=== PATIENT | female | born 1955 | race Caucasian/White ===

== ENCOUNTER 2017-06-16 18:07 | Emergency (ER) | payer MEDICAID ==
[~2017-06-16] VITALS: Ht 162.6 cm; Wt 68.0 kg
[2017-06-16 18:20] VITALS: BP 126/81
[2017-06-16] MEDS ORDERED: LEVO100T9 PO (18:22)
== END 2017-06-16 19:10 | disposition home or self-care (01) ==
LOC: ER 18:09
DX: H92.01 Otalgia, right ear (principal); R20.2 Paresthesia of skin; M54.6 Pain in thoracic spine; E03.9 Hypothyroidism, unspecified; G50.0 Trigeminal neuralgia; J45.909 Unspecified asthma, uncomplicated
CPT/HCPCS: A4606; Z7610

== ENCOUNTER 2017-08-04 19:17 | Emergency (ER) | payer MEDICAID ==
[~2017-08-04] VITALS: Ht 160 cm; Wt 70.3 kg
[~2017-08-04 19:17] MED LIST: LEVO100T9 PO
[2017-08-04 19:26] VITALS: BP 159/95
== END 2017-08-04 20:19 | disposition home or self-care (01) ==
LOC: ER 19:19
DX: R20.2 Paresthesia of skin (principal); R20.0 Anesthesia of skin; J45.909 Unspecified asthma, uncomplicated; E03.9 Hypothyroidism, unspecified
CPT/HCPCS: 99283; A4606; Z7610

== ENCOUNTER 2017-10-12 17:47 | Emergency (ER) | payer MEDICAID, OTHER ==
[~2017-10-12] VITALS: Ht 162.6 cm; Wt 71.2 kg
[2017-10-12 19:08] VITALS: BP 148/90
== END 2017-10-12 18:15 | disposition home or self-care (01) ==
LOC: ER 17:48
DX: M54.6 Pain in thoracic spine (principal); M62.830 Muscle spasm of back; E03.9 Hypothyroidism, unspecified; Z79.899 Other long term (current) drug therapy; X50.1XXA Overexertion from prolonged static or awkward postures, initial encounter; Y93.89 Activity, other specified; Y92.89 Other specified places as the place of occurrence of the external cause; Y99.8 Other external cause status
CPT/HCPCS: 99283; A4606; Z7610

== ENCOUNTER 2018-04-07 17:41 | Emergency (ER) | payer OTHER ==
[~2018-04-07] VITALS: Ht 134.6 cm; Wt 68.0 kg
[2018-04-07] MEDS ORDERED: CYCLOBENZAPRINE 10 MG TABLET ONE (18:15)
[2018-04-07] MEDS ORDERED: KETOROLAC TROMETHAMINE INJ 60 MG/2 ML VIAL IM ONE ×2 (18:15→18:30)
[2018-04-07] MEDS ORDERED: DEXAMETHASONE SOD PHOSPHATE 10 MG/ML VIAL ONE (18:15)
--- NOTE | 2018-04-07 18:28 | NUR ---
C/O OF UPPER BACK PAIN x 1 WEEK, WORST TODAY, 12/09. PT AAOX4, VSS. PT SEEN & EVAL'D BY KWABENA SPEARS. MEDICATED FOR PAIN PER PA'S ORDER, PT MAYA WELL. WILL CONT TO MONITOR. URINE COLLECTED & SENT TO LAB.
[2018-04-07] MEDS ORDERED: DEXAMETHASONE SOD PHOSPHATE 4 MG/ML VIAL IM ONE (18:30)
[2018-04-07] MEDS ORDERED: CYCLOBENZAPRINE 10 MG TABLET PO ONE (18:30)
[2018-04-07 18:43] LABS: APPEARANCE,URINE Clear (CLEAR); BILIRUBIN,URINE Negative (NEGATIVE); BLOOD, URINE Trace-intact Ery/uL (NEGATIVE); COLOR,URINE Yellow (YELLOW); KETONES,URINE Trace (NEGATIVE); LEUKOCYTE ESTERASE ,URINE Negative (NEGATIVE); NITRITE, URINE Negative (NEGATIVE); PH,URINE 5.5 (5.0-8.0); PROTEIN,URINE Negative (NEGATIVE); UGLUCOSE 100 MG/DL mg/dL (NEGATIVE); UROBILINOGEN,URINE 0.2 EU/dL (0.2)
[2018-04-07 18:58] LABS: RBC,URINE 2-3/HPF /HPF (0-2); WBC,URINE 0-2 /HPF (0-3)
[2018-04-07 18:59] LABS: BACTERIA,URINE Rare /HPF (None Seen); SQUAMOUS EPITHELIAL CELL,UR Few /HPF (None Seen); URINE AMORPHOUS URATE Few /HPF (None Seen)
--- NOTE | 2018-04-07 19:26 | NUR ---
Patient discharged to home in stable condition. Written and verbal after care instructions given. Patient verbalizes understanding of instruction.
[2018-04-07 19:28] VITALS: BP 138/78
== END 2018-04-07 19:28 | disposition home or self-care (01) ==
LOC: ER 17:42
DX: M54.6 Pain in thoracic spine (principal); E03.9 Hypothyroidism, unspecified
CPT/HCPCS: 81001; 96372 ×2; 99283; A4606; J1100; J1885; 81000-TC

== ENCOUNTER 2018-11-29 17:42 | Emergency (ER) | payer MEDICAID, OTHER ==
[~2018-11-29] VITALS: Ht 162.6 cm; Wt 65.3 kg
--- NOTE | 2018-11-29 17:52 | NUR ---
PT BIB SELF C/O UPPER BACK PAIN x 1 MONTH, DENIES ANY INJURY OR TRAUMA, PT IS AAOX4, NOT IN RESPIRATORY DISTRESS, HOOKED TO MONITOR, KEPT RESTED AND COMFORTABLE, WILL CONTINUE TO MONITOR.
--- NOTE | 2018-11-29 18:09 | NUR ---
SEEN AND EXAMINED BY DESHAUN COHEN
--- NOTE | 2018-11-29 18:21 | NUR ---
PT IS WHEELED TO RADIOLOGY FOR XRAY.
[2018-11-29] MEDS ORDERED: KETOROLAC TROMETHAMINE INJ 30 MG/ML VIAL ONE (18:23)
[2018-11-29] MEDS ORDERED: DEXAMETHASONE SOD PHOSPHATE 10 MG/ML VIAL ONE (18:23)
[2018-11-29] MEDS ORDERED: CYCLOBENZAPRINE 10 MG TABLET ONE (18:24)
[2018-11-29] MEDS ORDERED: CYCLOBENZAPRINE 10 MG TABLET PO ONE (18:30)
[2018-11-29] MEDS ORDERED: DEXAMETHASONE SOD PHOSPHATE 4 MG/ML VIAL IM ONE (18:30)
[2018-11-29] MEDS ORDERED: KETOROLAC TROMETHAMINE INJ 60 MG/2 ML VIAL IM ONE (18:30)
[2018-11-29 19:11] VITALS: BP 130/72
--- NOTE | 2018-11-29 19:11 | NUR ---
Patient discharged to home in stable condition. Written and verbal after care instructions given. Patient verbalizes understanding of instruction.
== END 2018-11-29 19:11 | disposition home or self-care (01) ==
LOC: ER 17:46
DX: M54.6 Pain in thoracic spine (principal); E03.9 Hypothyroidism, unspecified
CPT/HCPCS: 71100; 96372 ×2; 99283; J1100; J1885

== ENCOUNTER 2020-08-08 04:27 | Emergency (ER) | payer MEDICAID ==
[~2020-08-08] VITALS: Ht 162.6 cm; Wt 68.0 kg
[2020-08-08 05:02] VITALS: BP 167/110
[2020-08-08] MEDS ORDERED: ONDANSETRON 4 MG TAB.RAPDIS ONE (06:18)
[2020-08-08] MEDS ORDERED: ONDANSETRON 4 MG TAB.RAPDIS SL ONE (06:30)
== END 2020-08-08 06:24 | disposition home or self-care (01) ==
LOC: ER 04:31
DX: B02.9 Zoster without complications (principal); E03.9 Hypothyroidism, unspecified; Z79.899 Other long term (current) drug therapy
CPT/HCPCS: 99283; Q0162

== ENCOUNTER 2022-10-10 15:24 | Emergency (ER) | payer OTHER ==
[~2022-10-10] VITALS: Ht 160 cm; Wt 59.0 kg
[2022-10-10] MEDS ORDERED: LIDOCAINE 1%-EPI 1:100,000 20 ML VIAL ONE (17:49)
[2022-10-10] MEDS ORDERED: LIDOCAINE 1%-EPI 1:100,000 20 ML VIAL TP ONE (18:00)
[2022-10-10 19:21] VITALS: BP 132/86; TEMP 98.3; O2SAT 98
== END 2022-10-10 19:21 | disposition home or self-care (01) ==
LOC: ER 15:34
DX: S01.112A Laceration without foreign body of left eyelid and periocular area, initial encounter (principal); R51.9 Headache, unspecified; E03.9 Hypothyroidism, unspecified; W01.0XXA Fall on same level from slipping, tripping and stumbling without subsequent striking against object, initial encounter; Y93.89 Activity, other specified; Y92.009 Unspecified place in unspecified non-institutional (private) residence as the place of occurrence of the external cause; Y99.8 Other external cause status
CPT/HCPCS: 99284; 70450; 12013; A6403; J3490

== ENCOUNTER 2024-08-12 13:04 | Emergency (ER) | payer OTHER, MEDICAID ==
[~2024-08-12] VITALS: Ht 157.5 cm; Wt 63.5 kg
[2024-08-12 13:32] VITALS: TEMP 98.5
[2024-08-12 14:42] LABS: BASOPHILS % (AUTO) 0.6 % (0.0-2.0); EOSINOPHILS # (AUTO) 0.3 K/uL (0.0-0.7); EOSINOPHILS % (AUTO) 3.2 % (0.0-6.0); HEMATOCRIT 40 % (33-45); HEMOGLOBIN 13.4 g/dL (11.5-14.8); LYMPHOCYTES % (AUTO) 25.1 % (20.0-44.0); MEAN CORPUSCULAR HEMOGLOBIN 30 PG (26.0-33.0); MEAN CORPUSCULAR HGB CONC 34 g/dl (31.0-36.0); MEAN CORPUSCULAR VOLUME 88 fL (82-100); MONOCYTES # (AUTO) 0.7 K/uL (0.1-1.30); MONOCYTES % (AUTO) 8.4 % (2.0-12.0); NEUTROPHILS # (AUTO) 5.1 K/uL (1.8-8.9); NEUTROPHILS % (AUTO) 62.7 % (43.0-81.0); PLATELET COUNT (AUTO) 397 K/uL (150-450); RED BLOOD CELL COUNT(AUTO) 4.54 MIL/uL (4.0-5.2); RED CELL DISTRIBUTION WIDTH 13.6 % (11.5-15.0); WHITE BLOOD COUNT (AUTO) 8.1 K/uL (4.3-11.0)
[2024-08-12 14:50] LABS: CALCIUM, SERUM 9.4 mg/dL (8.5-10.1); CREATININE 0.8 mg/dL (0.6-1.3)
[2024-08-12 14:55] LABS: ALBUMIN 3.7 g/dL (3.4-5.0); BILIRUBIN,DIRECT 0.1 mg/dL (0.0-0.2); BILIRUBIN,TOTAL 0.3 mg/dL (0.2-1.0); TOTAL PROTEIN, SERUM 7.8 g/dL (6.4-8.2)
[2024-08-12 16:04] LABS: APPEARANCE,URINE CLEAR (CLEAR); BILIRUBIN,URINE Negative (NEGATIVE); BLOOD, URINE Trace-intact Ery/uL (NEGATIVE); COLOR,URINE YELLOW (YELLOW); KETONES,URINE Negative (NEGATIVE); LEUKOCYTE ESTERASE ,URINE Trace (NEGATIVE); PH,URINE 6.5 (5.0-8.0); PROTEIN,URINE Negative (NEGATIVE); UGLUCOSE Negative (NEGATIVE); UROBILINOGEN,URINE 0.2 EU/dL (0.2)
[2024-08-12 16:05] LABS: NITRITE, URINE NEGATIVE (NEGATIVE)
[2024-08-12 16:06] LABS: ADD URINE CULTURE YES; BACTERIA,URINE Few /HPF (None Seen); SQUAMOUS EPITHELIAL CELL,UR Few /HPF (None Seen)
[2024-08-12] MEDS ORDERED: CEPH-570 PO (17:10)
[2024-08-12] MEDS ORDERED: IBUP-1955 PO (17:10)
[2024-08-12 17:19] VITALS: BP 125/80; O2SAT 99
== END 2024-08-12 17:20 | disposition home or self-care (01) ==
LOC: ER 13:16
DX: M25.552 Pain in left hip (principal); N39.0 Urinary tract infection, site not specified; R10.32 Left lower quadrant pain; K57.30 Diverticulosis of large intestine without perforation or abscess without bleeding; E03.9 Hypothyroidism, unspecified; K76.0 Fatty (change of) liver, not elsewhere classified; Z79.890 Hormone replacement therapy
CPT/HCPCS: 36415; 71045-TC; 80048-TC; 80076-TC; 81001; 83690-TC; 85025-TC; 87086-TC